=== PATIENT | female | born 1960 | race Caucasian/White ===

== ENCOUNTER 2017-02-06 17:02 | Emergency (ER) | payer OTHER ==
[2017-02-06 17:18] VITALS: TEMP 98.5
--- NOTE | 2017-02-06 17:38 | RAD ---
EXAM DESCRIPTION: Chest,2 Views CLINICAL HISTORY: chest pain COMPARISON: April 05, 2013 FINDINGS: Cardiac silhouette is within normal limits. EKG leads project over the chest. Patient is rotated. There is no focal parenchymal or pleural disease. There is no acute osseous process visualized. There is scoliosis of the thoracic spine. IMPRESSION: No evidence of acute cardiopulmonary disease. Electronically signed by: Sj Lentz MD 02/06/2017 5:37 PM CDT
[2017-02-06] MEDS ORDERED: ASPIRIN TABLET 325 MG TAB PO ONE (18:27)
[2017-02-06] MEDS ORDERED: HYDROcodone 7.5MG/APAP 325MG 1 EA TAB PO ONE (18:27)
[2017-02-06] MEDS ORDERED: cefTRIAXone SODIUM 1 GM VIAL IM ONE (20:40)
[2017-02-06] MEDS ORDERED: AZITHROMYCIN 250 MG TAB PO ONE (20:40)
[2017-02-06] MEDS ORDERED: LIDOCAINE 1% 10 ML VIAL INJ ONE (20:44)
--- NOTE | 2017-02-06 20:57 | ED.PDOC ---
History of Present Illness - General Chief Complaint: Chest Pain/IL Stated Complaint: chest pain Time Seen by Provider: 02/06/17 17:05 Source: patient Exam Limitations: no limitations - History of Present Illness Initial Comments: the patient is a 56-year-old female presenting to the emergency room secondary to left-sided chest pain. It is worse with movement and taking a deep breath. It is been present for almost 24 hours. She has had a mild cough. No fever. It is no worse with aerobic activity. No syncope. No palpitations. On examination she has point tenderness to palpation in the anterior left chest. Additionally just below the point of discomfort the patient has obvious Rales and wheezes. Timing/Duration: 24 hours Severity: mild Improving Factors: immobilization Worsening Factors: movement Associated Symptoms: denies symptoms Allergies/Adverse Reactions: Allergies Iodine Allergy (Unverified 04/05/13 12:05) Penicillin V [From Pen-Vee-K] Allergy (Unverified 04/05/13 12:05) Home Medications: Ambulatory Orders Lisinopril 20 mg PO DAILY 04/05/13 Trazodone HCl 100 mg PO BEDTIME 04/05/13 Szjezgasjbrbh-Hwhp-Jjqkafkiku [Fioricet] 1 ea PO Q8H PRN #21 tab 02/06/17 Simvastatin 20 mg PO DAILY 02/06/17 Zoloft mg PO DAILY 02/06/17 levoFLOXacin [Levaquin] 500 mg PO DAILY #5 tab 02/06/17 Review of Systems - Review of Systems Constitutional: States: no symptoms reported EENTM: States: no symptoms reported Respiratory: States: cough Cardiology: States: chest pain Gastrointestinal/Abdominal: States: no symptoms reported Genitourinary: States: no symptoms reported Musculoskeletal: States: no symptoms reported Skin: States: no symptoms reported Neurological: States: no symptoms reported Endocrine: States: no symptoms reported All other Systems: No Change from Baseline Past Medical History (General) - Patient Medical History Hx Cardiac Disorders: Yes Hx Congestive Heart Failure: No Hx Hypertension: Yes Hx Diabetes: No Surgical History: appendectomy, cholecystectomy, Hysterectomy - Vaccination History Hx Influenza Vaccination: Yes Hx Pneumococcal Vaccination: Yes - Social History Hx Tobacco Use: Yes - uses E-cigs now Family Medical History - Family History Mother Family History: Unknown Living Status: Unknown Physical Exam - Physical Exam General Appearance: Alert, Comfortable, No apparent distress Eye Exam: bilateral normal Ears, Nose, Throat: hearing grossly normal, normal ENT inspection, normal pharynx Neck: non-tender, full range of motion, supple Respiratory: no respiratory distress, no accessory muscle use, other - see history of present illness Cardiovascular/Chest: normal peripheral pulses, regular rate, rhythm, no edema Peripheral Pulses: radial,right: 2+, radial,left: 2+, dorsalis pedis,right: 2+, dorsalis pedis,left: 2+ Gastrointestinal/Abdominal: non tender, soft Back Exam: normal inspection, no CVA tenderness, no vertebral tenderness Extremity: normal range of motion, non-tender, normal inspection, no pedal edema , normal capillary refill 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 Point tenderness and pulmonary exam indicated the patient likely has a small lingular pneumonia. The patient will be placed on Levaquin 500 mg daily for 5 days. ER warnings were given. 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 She should also follow up with her primary care doctor next week. She will also be written for a small dose of Fioricet for as needed use for discomfort. The chest pain is likely pleurisy from the above issue. - Results/Orders Results/Orders: 02/06/17 17:13 Telemetry .CONTINUOUS 02/06/17 17:15 EKG STAT Laboratory Results - last 24 hr 02/06/17 02/06/17 02/06/17 17:35 17:35 17:35 WBC 9.0 RBC 4.59 Hgb 13.5 Hct 39.9 MCV 86.9 MCH 29.5 MCHC 33.9 RDW 13.5 Plt Count 322 MPV 7.1 L Absolute Neuts (auto) 5.50 Absolute Lymphs (auto) 2.30 Absolute Monos (auto) 1.00 H Absolute Eos (auto) 0.10 Absolute Basos (auto) 0.10 Neutrophils % 61.2 Lymphocytes % 25.8 Monocytes % 11.4 H Eosinophils % 1.0 Basophils % 0.6 PT 10.6 INR 0.940 PTT (SP) 28.9 D-Dimer, Quantitative 310 H* Sodium 140 Potassium 3.9 Chloride 107 Carbon Dioxide 25 Anion Gap 11.9 L BUN 18 Creatinine 0.92 BUN/Creatinine Ratio 19.6 Random Glucose 93 Serum Osmolality 281.0 Calcium 9.0 Magnesium 2.1 Total Bilirubin 0.5 AST 26 ALT 26 Alkaline Phosphatase 58 Creatine Kinase 99 CK-MB (CK-2) 0.7 CK-MB (CK-2) % Not Reportable Troponin I < 0.02 B-Natriuretic Peptide 11.3 Serum Total Protein 6.8 Albumin 4.0 Globulin 2.8 Albumin/Globulin Ratio 1.4 02/06/17 20:03 WBC RBC Hgb Hct MCV MCH MCHC RDW Plt Count MPV Absolute Neuts (auto) Absolute Lymphs (auto) Absolute Monos (auto) Absolute Eos (auto) Absolute Basos (auto) Neutrophils % Lymphocytes % Monocytes % Eosinophils % Basophils % PT INR PTT (SP) D-Dimer, Quantitative Sodium Potassium Chloride Carbon Dioxide Anion Gap BUN Creatinine BUN/Creatinine Ratio Random Glucose Serum Osmolality Calcium Magnesium Total Bilirubin AST ALT Alkaline Phosphatase Creatine Kinase 96 CK-MB (CK-2) 0.6 CK-MB (CK-2) % Not Reportable Troponin I < 0.02 B-Natriuretic Peptide Serum Total Protein Albumin Globulin Albumin/Globulin Ratio chest x-ray appears benign. EKG shows normal sinus rhythm. Normal QT interval. No acute ST segment changes concerning for ischemia. This EKG is almost identical to one from 2013. Departure - Departure Clinical Impression: Lingular pneumonia Disposition: Discharge to Home or Self Care Condition: Fair Departure Forms: ED Discharge - Pt. Copy, Patient Portal Self Enrollment Instructions: DI for Pneumonia -- Adult Diet: regular diet Activity: increase activity as tolerated Referrals: JANNET GARCÍA [Primary Care Provider] - 1-2 Weeks Prescriptions: Abgtpcqonntxj-Satx-Sswgrfgyxk [Fioricet] 1 ea PO Q8H PRN #21 tab PRN Reason: Pain levoFLOXacin [Levaquin] 500 mg PO DAILY #5 tab Home Medications: Ambulatory Orders Lisinopril 20 mg PO DAILY 04/05/13 Trazodone HCl 100 mg PO BEDTIME 04/05/13 Khozgyrborvwh-Ckcy-Bvgfwwbsge [Fioricet] 1 ea PO Q8H PRN #21 tab 02/06/17 Simvastatin 20 mg PO DAILY 02/06/17 Zoloft mg PO DAILY 02/06/17 levoFLOXacin [Levaquin] 500 mg PO DAILY #5 tab 02/06/17 Additional Instructions: the patient is a 56-year-old female presenting to the emergency room with left-sided chest pain. Point tenderness and pulmonary exam indicated the patient likely has a small lingular pneumonia. The patient will be placed on Levaquin 500 mg daily for 5 days. ER warnings were given. 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 She should also follow up with her primary care doctor next week. She will also be written for a small dose of Fioricet for as needed use for discomfort. The chest pain is likely pleurisy from the above issue.
[2017-02-06 21:25] VITALS: BP 149/94; O2SAT 96
== END 2017-02-06 21:26 | disposition home or self-care (01) ==
LOC: ER 17:02
DX: J18.8 Other pneumonia, unspecified organism (principal); I10 Essential (primary) hypertension; F17.210 Nicotine dependence, cigarettes, uncomplicated; Z88.0 Allergy status to penicillin; Z88.8 Allergy status to other drugs, medicaments and biological substances
CPT/HCPCS: 36415; 71020; 80053; 82550; 82553; 83735; 83880; 84484; 85025; 85379; 85610; 85730; 93005; J0696; Q0144

== ENCOUNTER → 2017-06-17 | Outpatient (CLI) | payer OTHER ==
--- NOTE | 2017-06-17 13:57 | CT ---
EXAM DESCRIPTION: Abdoment/Pelvis w/o Contrast: CT. CLINICAL HISTORY: Upper abdominal pain, unspecified. Allergy to IV contrast. COMPARISON: CT scan abdomen and pelvis 02/04/2013. TECHNIQUE: Spiral-axial scans at 5.0 mm intervals through the abdomen and pelvis after water-soluble oral contrast. Coronal and sagittal 2.0 mm reconstructions. No IV contrast. Total Exam DLP: 500 mGy-cm. This exam was performed according to our departmental CT dose-optimization program which includes automated exposure control, adjustment of the mA and/or kV according to patient size and/or use of iterative reconstruction technique; to reduce radiation dose to as low as reasonably achievable (ALARA). Note: Patient refused IV contrast. FINDINGS: Lung bases and pleura: Minimal pericardial effusion predominantly anterior and apex. This is chronic. No pulmonary infiltrate or pleural effusion. Liver, spleen, stomach, and adrenal glands: Liver contains multiple cysts predominantly in the left lobe with few cysts in the superior and inferior segments of the right lobe and much smaller borders are lobulated and well-defined in the larger cysts, which can be resolved by CT. No calcification or internal density. Sensitivity is limited due to lack of IV contrast. No oral contrast in the stomach normal size. Adrenal glands and spleen negative.. Pancreas/Gallbladder/Ducts: Surgical clips in the gallbladder fossa with no fluid. Minimal dilation of the duct. Normal size and density of the pancreas. Kidneys and Ureters: Normal size and density of the left kidney. Low-density 1.5 cm object in the anterior mid right kidney with Hounsfield density +8.7. No renal calcifications radiodense stones hydronephrosis or perinephric edema. Pelvic Organs: Calcification vaginal cuff. Density in the adnexa with no definite ovaries. Large right adnexal cyst seen on the prior study is no longer present. No free fluid. No radiodense objects in the urinary bladder. Mesentery: No stranding fascial thickening free air or free fluid. Aorta: Normal outer caliber with focal atherosclerotic calcification abutting the origin of the SMA. Small Bowel: Normal caliber with minimal air, oral contrast in the ileum. Terminal Ileum/Cecum: Oral contrast in the terminal ileum which is normal caliber. Cecum is unremarkable. Appendix is not seen. Normal density of the surrounding fat. Colon: Contains oral contrast mostly fecal material and minimal gas. Moderate redundancy of the sigmoid colon containing mostly fecal material. Unremarkable. Spine and bony pelvis: Minimal spondylosis included thoracic spine. L4-5 disc bulging. Stable hemangiomas in L1 and T10 vertebral bodies since the prior study. Pelvis unremarkable. Abdominal Wall/Back Soft Tissues: Minimal diastases at the umbilicus but fat only, no bowel. IMPRESSION: 1. Study limited due to lack of IV contrast. Could not perform liver protocol. Patient refused IV contrast due to history of allergic reactions. 2. Hepatic cysts are stable since the prior study. Stable right renal cysts since the prior study. If there is clinical concern for complicated hepatic cysts, MRI scan of the liver can be performed without and with gadolinium IV contrast, which is much less resistant to patient contrast reaction. 2. Pericardial effusion or thickening is unchanged since the prior study. 3. Large right adnexal cyst has involuted or been removed since the prior study. Ovarian tissue was not seen. No fluid in the cul-de-sac. 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
== END ==
LOC: CT 08:35
PROVIDERS: ATTEND Internal Medicine Gastroenterology
DX: Q44.6 Cystic disease of liver (principal); I31.3 Pericardial effusion (noninflammatory); R10.10 Upper abdominal pain, unspecified

== ENCOUNTER → 2017-07-30 | Outpatient (CLI) | payer OTHER ==
--- NOTE | 2017-07-31 08:34 | MRI ---
EXAM DESCRIPTION: Abdomen MRI CLINICAL HISTORY: 57 years Female, ABN FINDINGS ON DX IMAGING OF ABD REGION COMPARISON: CT abdomen and pelvis without contrast June 17, 2017 TECHNIQUE: MRI of the abdomen is performed according to our usual technique including multisequence axial imaging. No IV contrast was given. All images are maintained in the patient's medical record. FINDINGS: Coronal T2 images show multiple cystic lesions of the liver. Simple hepatic cysts are thought most likely. A large number of cysts may indicate polycystic liver disease. No solid-appearing liver lesions. Normal appearance of the bile ducts. Pancreas is unremarkable. Normal size of spleen. Liver length of 18.2 cm is at the upper limits of normal. Few renal cysts are also present bilaterally. Axial T2 images show bilateral renal cysts. Largest cyst in the upper anterior left kidney has an internal thin septation and measures 1.2 cm. Largest cyst in the anterior mid right kidney measures 1.8 cm in diameter. No solid-appearing renal lesions. No retroperitoneal or mesenteric mass or adenopathy. No focal lesion of the pancreas. Multiloculated or multiseptate cysts in the liver are seen. Largest multiseptate cyst or cluster of cysts in the medial segment left lobe measures 4.5 x 4.2 cm. Another large septate cyst in the lateral segment left lobe measures 3.7 x 3.2 cm. The internal septations are thin. Therefore these are thought to have a benign appearance. Cystic metastatic disease in the liver is unusual. No inflammatory changes or wall thickening to suggest parasitic cysts. Therefore benign incidental hepatic cysts are thought most likely. These are most extensive in the left lobe of the liver few tiny cysts in the right lobe also present. Spleen appears normal. Few perineural cysts are noted in the spine. Gradient echo T1 dual phase imaging shows the lesions to be low in signal intensity. No significant change of hepatic parenchymal signal intensity to suggest hepatic steatosis. Normal appearance the adrenal glands. IMPRESSION: Multiple hepatic cysts with benign characteristics on MRI examination. Consider follow-up with noncontrast MRI or CT in 6-12 months to ensure stability. Electronically signed by: Nestor Vidal MD 07/31/2017 8:31 AM CDT
== END ==
LOC: MRI 08:41
PROVIDERS: ATTEND Internal Medicine Gastroenterology
DX: R93.5 Abnormal findings on diagnostic imaging of other abdominal regions, including retroperitoneum (principal); R93.3 Abnormal findings on diagnostic imaging of other parts of digestive tract; K76.89 Other specified diseases of liver

== ENCOUNTER → 2017-08-28 | Outpatient (CLI) | payer OTHER ==
--- NOTE | 2017-09-01 08:34 | MAM ---
EXAM DESCRIPTION: 3D Screening BILATERAL : Digital Mammography. CLINICAL HISTORY: 57 years Female SCREENING . No complaints. Sister with breast and ovarian cancer. Remote family history of breast cancer. Postmenopausal. Has taken HRT 5 or more years ago.. COMPARISON: 2-D digital screening bilateral studies 10/19/2013.. No prior reports available. TECHNIQUE: Bilateral CC and MLO projection full-field images, 3-D tomosynthesis digital mammographic technique. Also bilateral synthesized CC/ MLO full-field images. CAD not utilized. FINDINGS: The breast parenchymal density pattern is: Scattered areas of fibroglandular density. No skin thickening or nipple retraction bilateral solitary microcalcifications. Bilateral fibroglandular tissues are in a nodular pattern. No focal, stellate mass or density, focal asymmetry , and no suspicious microcalcifications bilaterally. Stable mammograms compared to prior study, taking into account differences in mammographic technique IMPRESSION: BI-RADS CATEGORY: 2 - BENIGN FINDINGS. FOLLOW UP: Routine digital bilateral screening, one year interval from August 2017. Written communication explaining the IMPRESSION and follow-up, will be mailed to the patient and referring health care provider. According to the [employer], yearly mammograms are recommended starting at age 40 and continuing as long as a woman is in good health. Any breast change noted on a breast self-exam should be reported promptly to the patient's healthcare provider. Breast MRI is recommended for women with an approximately 20-25% or greater lifetime risk of breast cancer, including women with a strong family history of breast or ovarian cancer and women who have been treated for Hodgkin's disease. A negative mammographic report should not delay tissue diagnosis in patients with significant clinical history or physical findings. Extremely dense breast tissue limits the sensitivity of digital mammography. Electronically signed by: Silvestre Baez MD 09/01/2017 8:32 AM CDT
== END ==
LOC: MAMMO 10:30
PROVIDERS: ATTEND Surgery
DX: Z12.31 Encounter for screening mammogram for malignant neoplasm of breast (principal)

== ENCOUNTER → 2019-12-28 | Outpatient (CLI) | payer MEDICARE ==
--- NOTE | 2019-12-29 19:03 | MAM ---
EXAM DESCRIPTION: 3D Screening BILATERAL : Digital Mammography. CLINICAL HISTORY: 59 years Female ANNUAL SCREENING . No complaints. Sister with breast cancer at age 50. Menarche age 10. Childbirth age 15. Menopause age unknown. No HRT. Lifetime risk of developing breast cancer (Tyrer-Cuzick model)(%): 2.8. COMPARISON: Bilateral screening digital breast tomosynthesis August 2017.. TECHNIQUE: Bilateral CC and MLO projection full-field images, digital tomosynthesis mammographic technique. Bilateral digital 2-D full-field MLO images. CAD available for 2-D images. FINDINGS: The breast parenchymal density pattern is: Scattered areas of fibroglandular density. No skin thickening or nipple retraction. Solitary microcalcifications. No new focal, stellate mass or density, focal asymmetry , and no suspicious microcalcifications bilaterally. Stable mammograms compared to prior study. IMPRESSION: Benign exam. BIRAD CATEGORY: 2 BENIGN FINDINGS. RECOMMENDATIONS: FOLLOW UP: Routine digital bilateral mammographic screening, one year interval from December 2019. Written communication explaining the IMPRESSION and follow-up, will be mailed to the patient and referring health care provider. According to the [employer], yearly mammograms are recommended starting at age 40 and continuing as long as a woman is in good health. Any breast change noted on a breast self-exam should be reported promptly to the patient's healthcare provider. Breast MRI is recommended for women with an approximately 20-25% or greater lifetime risk of breast cancer, including women with a strong family history of breast or ovarian cancer and women who have been treated for Hodgkin's disease. A negative mammographic report should not delay tissue diagnosis in patients with significant clinical history or physical findings. Extremely dense breast tissue limits the sensitivity of digital mammography. Electronically signed by: Silvestre Baez MD 12/29/2019 7:01 PM CDT
== END | disposition home or self-care (01) ==
LOC: MAMMO 10:02
PROVIDERS: ATTEND Emergency Medicine
DX: Z12.31 Encounter for screening mammogram for malignant neoplasm of breast (principal)

== ENCOUNTER → 2020-01-07 | Outpatient (CLI) | payer MEDICARE ==
--- NOTE | 2020-01-10 09:53 | CT ---
EXAM DESCRIPTION: Lung Screen Low Dose CLINICAL HISTORY: PERSONAL HISTORY OF TOBACCO DEPENDENCE COMPARISON: None. TECHNIQUE: Noncontrast transaxial CT images of the chest are obtained. Low dose screening CT protocol was performed. This exam was performed according to our departmental dose-optimization program, which includes automated exposure control, adjustment of the mA and/or kV according to patient size and/or use of iterative reconstruction technique . FINDINGS: Heart is normal size. Mild coronary artery calcifications. Mild calcifications of the thoracic aorta. No pathologically enlarged mediastinal, hilar, or axillary lymphadenopathy seen. Small moderate pericardial effusion measuring 10 mm thickness anteriorly. No pleural effusion. Multiple low-attenuation lesions in the primarily the left lobe of the liver measures maximum 4.8 cm with fluid attenuation. Cholecystectomy changes are seen. Lungs are normally aerated. Mild centrilobular emphysematous changes are seen. No acute infiltrate or consolidation. Mild peripheral interstitial thickening in the lower lobes bilaterally. Small 3 mm noncalcified pulmonary nodule in the medial aspect of the left upper lobe. 3 mm noncalcified pulmonary nodule lingula left upper lobe image 80 of series 2. Several less than 4 mm noncalcified pulmonary nodules in the right lung are seen. Osseous structures show no aggressive bony lesions. Mild spondylitic changes of the spine are seen. IMPRESSION: Mild centrilobular emphysematous changes to lungs are seen with chronic interstitial fibrotic changes in the lower lobes. Several less than 6 mm noncalcified pulmonary nodules are seen in the lungs bilaterally. Lung RADS category 2. Recommend follow-up low-dose noncontrast screening CT protocol 1 year. Small moderate pericardial effusion is incidentally noted. Multiple fluid attenuation hepatic cysts. The cysts are mostly stable compared to CT of the abdomen dated February 04, 2013. Electronically signed by: Hernando Andres MD 01/10/2020 9:52 AM CDT
== END ==
LOC: CT 09:05
PROVIDERS: ATTEND Emergency Medicine
DX: Z87.891 Personal history of nicotine dependence (principal); Z12.2 Encounter for screening for malignant neoplasm of respiratory organs; R91.8 Other nonspecific abnormal finding of lung field; J84.10 Pulmonary fibrosis, unspecified; J43.9 Emphysema, unspecified; I31.3 Pericardial effusion (noninflammatory); K76.89 Other specified diseases of liver

== ENCOUNTER → 2020-02-18 | Outpatient (CLI) | payer OTHER ==
--- NOTE | 2020-02-19 16:19 | US ---
EXAM DESCRIPTION: Renal: Ultrasound. CLINICAL HISTORY: 59 years Female CHRONIC CYSTITIS WITH HEMATURIA COMPARISON: None TECHNIQUE: Transcutaneous scanning: Two-dimensional and Doppler modes. FINDINGS: Right kidney measures 10.8 x 5.9 x 6.4 cm; volume 210.6 ml. Mid-renal cortical thickness 10 mm. . Normal Cortical echogenicity No hydronephrosis No echogenic stones. 1.7 cm cyst. 1.6 cm cyst. Smooth contour of the kidney with no perinephric fluid. Normal vascularity. Proximal ureter is not seen. Left kidney measures 11.0 x 5.8 x 5.5 cm; volume 186 mL. 1.5 cm. Mid-renal cortical thickness 11 mm. Normal cortical echogenicity. No hydronephrosis. No echogenic stones. Smooth contour of the kidney with no perinephric fluid. Normal vascularity.. Proximal ureter not seen. Urinary bladder was visualized. 40.8 ml. Ureteral jet in the bladder not seen by color Doppler. Abdominal aorta: Normal caliber from the proximal segment to the distal bifurcation. IMPRESSION: 1. Bilateral kidneys with thin cortex but normal signal. Bilateral renal cysts. Decreased volume in the left kidney. No stones or hydronephrosis bilaterally. 2. Urinary bladder visualized but ureteral jets not seen within the bladder. The postvoiding. 3. Normal caliber of the abdominal aorta. Electronically signed by: Silvestre Baez MD 02/19/2020 4:17 PM CDT
== END ==
LOC: US 11:30
PROVIDERS: ATTEND Obstetrics & Gynecology
DX: N30.21 Other chronic cystitis with hematuria (principal); N28.89 Other specified disorders of kidney and ureter; N28.1 Cyst of kidney, acquired